=== PATIENT | female | born 1950 | race Caucasian/White ===

== ENCOUNTER → 2017-10-07 | Outpatient (CLI) | payer MEDICARE ==
[~2017-10-07] MED LIST: AMOXICILLIN 8751 TAB PO; ASPIRIN 81M81 MG/TA2 PO; HCTZ 25MG TAB25 MG PO; LIPITOR 10MG10 MG PO; NORVASC 10MG10 MG PO
== END ==
LOC: MC.RAD 10:33
DX: Z12.31 Encounter for screening mammogram for malignant neoplasm of breast (principal)

== ENCOUNTER 2019-01-22 06:29 | Day surgery (SDC) | payer MEDICARE ==
[~2019-01-22] VITALS: Ht 167.6 cm; Wt 86.1 kg
[2019-01-22 06:55] VITALS: BP 111/85; PULSE 84; TEMP 98
[2019-01-22] MEDS ORDERED: DITROPAN 5MG TAB5 MG PO (07:05)
[2019-01-22] MEDS ORDERED: COZAAR 50MG50 MG/TAB PO (07:05)
[2019-01-22] MEDS ORDERED: MASON NATURAL2000 IU PO (07:07)
--- NOTE | 2019-01-22 07:08 | NUR ---
TO RM AT 0635- CALL LIGHT IN REACH DAUGHTER AT BEDSIDE
[2019-01-22 08:20] VITALS: BP 116/73; PULSE 67; TEMP 97.6
--- NOTE | 2019-01-22 08:20 | NUR ---
Pt arrived to post procedure room after colonoscopy. Received report from Endo RN indicating that pt required narcan, oral airway, and bagging near end of procedure. Pt, currently, is awake and alert and denies any discomfort or issues. Ambulated easily to bed and family is at bedside. VSS and WNL. Educated pt about call light and brought her a muffin and water per request.
[2019-01-22 08:35] VITALS: BP 127/69; PULSE 56
--- NOTE | 2019-01-22 08:35 | NUR ---
Pt finished muffin and water with no N/V and states, "I can't believe it...I'm still hungry." Dr. Hayes at pt's bedside discussing today' procedure. This RN verified with physician: no further interventions/monitoring needed for patient in regards to administration of narcan in procedure. He gave OK to monitor/discharge per normal protocol.
[2019-01-22 08:50] VITALS: BP 121/70; PULSE 61
--- NOTE | 2019-01-22 08:50 | NUR ---
Pt perky and meets criteria for discharge. VSS and WNL. Pt states that she is ready to go home. Reviewed with patient and family pt's discharge instructions including adverse signs/symptoms to watch for and how to get ahold of physician if needed. Pt had no further concerns/questions.
== END 2019-01-22 09:12 | disposition home or self-care (01) ==
LOC: SDCO 06:29
DX: Z12.11 Encounter for screening for malignant neoplasm of colon (principal); Z86.010 Personal history of colon polyps; D12.5 Benign neoplasm of sigmoid colon; E78.00 Pure hypercholesterolemia, unspecified; Z80.0 Family history of malignant neoplasm of digestive organs; Z83.71 Family history of colonic polyps; Z90.710 Acquired absence of both cervix and uterus; Z90.49 Acquired absence of other specified parts of digestive tract
CPT/HCPCS: OP; J2250; J2310; J3010; J7030

== ENCOUNTER → 2021-01-09 | Outpatient (CLI) | payer MEDICARE ==
[~2021-01-09] MED LIST changes: +COZAAR 50MG50 MG/TAB PO; +DITROPAN 5MG TAB5 MG PO; +MASON NATURAL2000 IU PO
== END ==
LOC: COL.RAD 07:30
DX: Z13.6 Encounter for screening for cardiovascular disorders (principal); Z87.891 Personal history of nicotine dependence